=== PATIENT | female | born 1985 | race Caucasian/White ===

== ENCOUNTER → 2016-12-24 | Outpatient (CLI) | payer MEDICAID ==
[~2016-12-24] MED LIST: EVENING PRIMR1000 MG PO; FERROUS SULFAT200 M1 PO; FLINTSTONES1 EACH PO; FLUOXETINE 10MG10 MG PO; HYDROXYZINE 25M25 MG PO; LABETALOL 100M100 M1 PO; MAG-OX 400MG T400 MG PO; MOTRIN 400MG.400 MG PO; NAPROXEN SODIU500 MG PO; NATURAL IRON65 MG PO; PERCOCET 5/3251 EACH PO; VALACYCLOVIR500 M1 PO; ZANTAC 150150 MG PO
[2016-12-24 18:30] LABS: LYMPH # 1.8 K/mm3 (0.7-4.5); LYMPH % 24.6 % (10-50.0)
[2016-12-24 18:32] LABS: HEMOGLOBIN 14.2 g/dL (12.2-16.2)
[2016-12-24 18:55] LABS: BUN 11 mg/dL (7-18)
[2016-12-24 18:57] LABS: GFR (ESTIMATED) 84 ML/MIN (59-)
[2016-12-26 08:41] LABS: Folate (Folic Acid) >20.0 ng/mL (>3.0); Vitamin B12 754 pg/mL (211-946); Vitamin D, 25-Hydroxy 21.6 ng/mL (30.0-100.0)
== END ==
LOC: LAB 17:46
PROVIDERS: Physician Assistant
DX: E66.9 Obesity, unspecified (principal)